=== PATIENT | male | born 1965 | race Caucasian/White ===

== ENCOUNTER → 2018-03-30 | Outpatient (CLI) | payer OTHER ==
[~2018-03-30] MED LIST: AMLO5TAB2 PO; EZET10TA18 PO; HYDR12.58 PO; LOSA100T6 PO; THYR60TA PO
[2018-03-30 08:55] LABS: ALBUMIN 3.8 g/dL (3.4-5.0); ANION GAP 6 mmol/L (5-15); CHLORIDE 107 mmol/L (98-107)
[2018-03-30 08:58] LABS: ALANINE AMINOTRANSFERASE 30 U/L (12-78); ALKALINE PHOSPHATASE 85 U/L (45-117); BILIRUBIN,TOTAL 0.6 mg/dL (0.2-1.0); CALCIUM 9.3 mg/dL (8.5-10.1); TOTAL PROTEIN 7.1 g/dL (6.4-8.2)
== END | disposition home or self-care (01) ==
LOC: STAR 08:03
PROVIDERS: ATTEND Otolaryngology
DX: E04.2 Nontoxic multinodular goiter (principal); E03.9 Hypothyroidism, unspecified
CPT/HCPCS: 36415; 80053

== ENCOUNTER 2018-04-05 10:14 | Inpatient (IN) | payer OTHER ==
[2018-03-30 08:44] VITALS: BP 123/86
[~2018-04-05] VITALS: Ht 170.2 cm; Wt 90.1 kg
[2018-04-05] MEDS ORDERED: LACTATED RINGERS 1,000 ML IV SCH ×2 (10:50→19:00)
[2018-04-05] MEDS ORDERED: LIDOCAINE-MPF 1%, 2ML INFIL ONE (11:00)
[2018-04-05] MEDS ORDERED: MICROFIBRILLAR COLLAGEN 70X35X1 DRESSING ONE ×2 (12:20→13:19)
[2018-04-05] MEDS ORDERED: LIDOCAINE/PF 1%, 30ML ONE (13:19)
[2018-04-05] MEDS ORDERED: EPINEPHRINE 1 MG/ML, 1ML ONE (13:19)
[2018-04-05] MEDS ORDERED: BACITRACIN OINT 500U/GM, 15 GM ONE (13:19)
[2018-04-05] MEDS ORDERED: FENTANYL PF 250 MCG/5ML ONE (14:01)
[2018-04-05] MEDS ORDERED: BACITRACIN ZINC OINT 500U/GM, 0.9 GM ONE (14:06)
[2018-04-05] MEDS ORDERED: DEXAMETHASONE 4 MG/ML, 1ML ONE (14:36)
[2018-04-05] MEDS ORDERED: LABETALOL 5MG/ML, 20ML ONE (14:36)
[2018-04-05] MEDS ORDERED: PROPOFOL 10 MG/ML, 20ML ONE (14:36)
[2018-04-05] MEDS ORDERED: ONDANSETRON 2MG/ML, 2ML ONE (14:36)
[2018-04-05] MEDS ORDERED: SUCCINYLCHOLINE 20 MG/ML, 10ML ONE (14:36)
[2018-04-05] MEDS ORDERED: CLINDAMYCIN 150 MG/ML, 6ML ONE (14:40)
[2018-04-05] MEDS ORDERED: HYDROmorphone 1 MG/ML, 1ML IV PRN (15:30)
[2018-04-05] MEDS ORDERED: ACETAMINOPHEN 325 MG TABLET PO PRN (15:30)
[2018-04-05] MEDS ORDERED: hydrALAzine 20 MG/ML, 1ML IV PRN (15:30)
[2018-04-05] MEDS ORDERED: LABETALOL 5MG/ML, 20ML IV PRN (15:30)
[2018-04-05] MEDS ORDERED: HALOPERIDOL 5 MG/ML IV PRN (15:30)
[2018-04-05] MEDS: OXYcodone 5 MG/5 ML ORAL.SOL UDC PO PRN ×2 (17:30→17:55)
[2018-04-05] MEDS: FENTANYL PF 100 MCG/2ML IV PRN ×3 (17:30→17:52)
[2018-04-05] MEDS ORDERED: FENTANYL PF 100 MCG/2ML ONE (17:31)
[2018-04-05] MEDS ORDERED: OXYcodone 5 MG/5 ML ORAL.SOL UDC ONE ×2 (17:31→17:53)
[2018-04-05] MEDS ORDERED: OXYcodone IR 5MG TABLET PO PRN (19:00)
[2018-04-05] MEDS ORDERED: ACETAMINOPHEN 500 MG TABLET PO PRN ×2 (19:00)
[2018-04-05] MEDS ORDERED: MORPHINE SULFATE 4 MG/ML, 1ML IV PRN (19:00)
[2018-04-05 20:10] VITALS: BP 137/84
[2018-04-05] MEDS ORDERED: ACETAMINOPHEN 500 MG TABLET ONE (20:46)
[2018-04-06 00:02] VITALS: BP 124/69
[2018-04-06] MEDS: ACETAMINOPHEN 500 MG TABLET PO PRN ×2 (02:45→09:02)
[2018-04-06 03:55] VITALS: BP 104/69
[2018-04-06] MEDS ORDERED: THYROID 30 MG TABLET PO SCH (06:00)
[2018-04-06 07:04] VITALS: BP 127/78
[2018-04-06] MEDS ORDERED: CALCIUM CARBONATE 500 MG TAB.CHEW PO SCH (09:00)
[2018-04-06] MEDS ORDERED: LOSARTAN 50MG TABLET PO SCH (09:00)
[2018-04-06] MEDS ORDERED: EZETIMIBE 10 MG TABLET PO SCH (09:00)
[2018-04-06] MEDS ORDERED: HYDROCHLOROTHIAZIDE 12.5 MG CAPSULE PO SCH (09:00)
[2018-04-06] MEDS ORDERED: AMLODIPINE 5 MG TABLET PO SCH (09:00)
[2018-04-06 12:46] VITALS: BP 126/77
[2018-04-06] MEDS ORDERED: OXYC5TAB2 PO (13:22)
[2018-04-06] MEDS ORDERED: LACTATED RINGERS 1,000 ML IV SCH (19:00)
== END 2018-04-06 14:00 | disposition home or self-care (01) | DRG 627 ==
LOC: OUT 10:14 → 4NOR 18:34 → OUT 18:38 → 4NOR 18:38
PROVIDERS: ADMIT Otolaryngology; ATTEND Otolaryngology
PROC: 0GTK0ZZ Resection of Thyroid Gland, Open Approach (ICD-10-PCS; principal; 2018-04-05 12:30)
DX: E04.2 Nontoxic multinodular goiter (principal); I10 Essential (primary) hypertension; Z98.1 Arthrodesis status; Z90.49 Acquired absence of other specified parts of digestive tract
CPT/HCPCS: 36415; 82310; 83970; 88307; 88331; 88334; C1729; J0171; J1100; J2405; J2704; J3010; J3490; C1760; J0330; J7120